=== PATIENT | male | born 1960 | race African-American/Black ===

== ENCOUNTER 2019-02-05 15:24 | Inpatient (IN) | payer OTHER ==
--- NOTE | 2019-02-05 16:21 | ED ---
General Adult HPI - General Source: patient, RN notes reviewed, old records reviewed Mode of arrival: ambulatory Limitations: no limitations <Ar Chiu - Last Filed: 02/05/19 16:17> <Jose Luis Reyes - Last Filed: 02/05/19 17:45> - General Chief complaint: Psychiatric Symptoms Stated complaint: Mental Health Time Seen by Provider: 02/05/19 15:41 - History of Present Illness Initial comments: 58-year-old male presents for psychiatric evaluation. Patient has been petitioned. He is coming from local long-term. He was initially arrested, attempting to cross into [place]. He was wearing an illegal body armor. Patient has had paranoid behavior, flight of ideas. He was petitioned and evaluated by [facility] prior to arrival. He does not report a previous history of mental illness. He states he was prescribed psychiatric medications in the past but has not taken them. He denies any physical complaints. He states he has no medical problems. He states he has been using his pineal gland to channel his inner spirituality. He does appear delusional and history is somewhat difficult. (Ar Chiu) - Related Data Allergies Allergy/AdvReac Type Severity Reaction Status Date / Time Sulfa (Sulfonamide AdvReac Rash/Hives Verified 02/05/19 16:51 Antibiotics) Review of Systems ROS Other: All systems not noted in ROS Statement are negative. <Ar Chiu - Last Filed: 02/05/19 16:17> ROS Other: All systems not noted in ROS Statement are negative. <Jose Luis Reyes - Last Filed: 02/05/19 17:45> ROS Statement: Those systems with pertinent positive or pertinent negative responses have been documented in the HPI. Past Medical History Past Medical History: No Reported History History of Any Multi-Drug Resistant Organisms: None Reported Past Surgical History: No Surgical Hx Reported Past Psychological History: No Psychological Hx Reported Smoking Status: Never smoker Past Alcohol Use History: None Reported Past Drug Use History: Marijuana <Ar Chiu - Last Filed: 02/05/19 16:17> General Exam Limitations: no limitations General appearance: alert, in no apparent distress Head exam: Present: atraumatic, normocephalic Eye exam: Present: normal appearance ENT exam: Present: mucous membranes moist Neck exam: Present: full ROM. Absent: meningismus Respiratory exam: Absent: respiratory distress, accessory muscle use GI/Abdominal exam: Absent: distended Extremities exam: Present: normal inspection, full ROM Neurological exam: Present: alert, normal gait. Absent: motor sensory deficit Psychiatric exam: Present: agitated, other (Delusional) Skin exam: Absent: cyanosis, diaphoretic <Ar Chiu - Last Filed: 02/05/19 16:17> - General Exam Comments Initial Comments: Patient refuses complete physical exam. He is in no acute distress. Vital signs are stable. (Ar Chiu) Course <Ar Chiu - Last Filed: 02/05/19 16:17> Vital Signs 02/05/19 15:28 Temperature 99.2 F Pulse Rate 105 H Respiratory 18 Rate Blood Pressure 142/99 O2 Sat by Pulse 98 Oximetry - Reevaluation(s) Reevaluation #1: 02/05/19 1700 Patient's care is signed out at shift change awaiting EPS evaluation and disp osition. (Ar Chiu) Medical Decision Making <Jose Luis Reyes - Last Filed: 02/05/19 17:45> - Medical Decision Making Medical decision making; this is a 58-year-old male here for psychiatric evaluation. Is brought to the emergency room from the bridge by the [employer] because he had illegal body armor on. He has flighty thoughts. Rambling history. States while in the long-term he found to ball slightly open them or bloody tampons. He stated that the police trying to frame him and collect semen from the samples. The patient reports is not currently taking any of his psychiatric medications. Patient denies any medical problems time. I have completed a certificate for admission for further evaluation with diagnosis of schizoaffective disorder. Dr. Reyes (Jose Luis Reyes) Disposition <Ar Chiu - Last Filed: 02/05/19 16:17> Is patient prescribed a controlled substance at d/c from ED?: No <Jose Luis Reyes - Last Filed: 02/05/19 17:45> Clinical Impression: Schizoaffective disorder Disposition: TRANSFER TO PSYCH HOSP/UNIT Condition: Serious Referrals: None,Stated [Primary Care Provider] - 1-2 days
[2019-02-05] MEDS ORDERED: ACETAMINOPHEN TAB 325 MG TAB PO PRN (17:56)
[2019-02-05] MEDS ORDERED: ZIPRASIDONE 20 MG VIAL IM PRN (17:56)
[2019-02-05] MEDS ORDERED: MAG HYDROX/AL HYDROX/SIMETH 30 ML CUP PO PRN (17:56)
[2019-02-05] MEDS ORDERED: MAGNESIUM HYDROXIDE 2,400 MG/10 ML CUP PO PRN (17:56)
[2019-02-05] MEDS ORDERED: LORazepam 1 MG TAB PO PRN (17:56)
[2019-02-05] MEDS ORDERED: LORazepam 2 MG/ML INJ IM PRN (18:04)
[2019-02-06] MEDS ORDERED: AMMONIUM LACTATE 12% CREAM 140 GM TUBE TOPICAL PRN (14:37)
--- NOTE | 2019-02-06 14:49 | P.HPMEDMHU ---
History of Present Illness H&P Date: 02/06/19 Chief Complaint: paranoia Patient is a 58-year-old -Citizen Of [place] male who was found by police for trying to cross that bridge to opiate legal wearing full green party [place]. His found have grandiose ideas apparently has subsequently been admitted to the mental health unit. Patient seen and examined in the hallways he refused to go to his rheumatoid examined him there. He denies any recent illnesses such as cough, cold, fever, flu, nausea, vomiting, or diarrhea. He complains of bilateral feet pain. He denies not wearing any shoes. He states it happened when he was bad but will not explain further. He reports that in injury on his face And when he was forced out of the police car. He believes he has a long way in the mental health unit and that he was trying to purchase property and explained there is lots of property there but he just wants his. He has a flight of ideas. He is paranoid thinking. He refuses to answer further questions. He states that he does not have a family doctor or any chronic medical conditions. Patient is focused on his Facebook page and real estate purchases. He does not stay focused on our exam. Review of Systems Unable to obtain complete review of systems secondary to patient's mental state and refusal to answer questions. Past Medical History Additional Past Medical History / Comment(s): left elbow fracture History of Any Multi-Drug Resistant Organisms: None Reported Past Surgical History: No Surgical Hx Reported Past Psychological History: No Psychological Hx Reported Smoking Status: Never smoker Past Alcohol Use History: None Reported Past Drug Use History: Marijuana - Past Family History Father Family Medical History: Unable to Obtain (refuses to answer any more questions) Mother Family Medical History: Unable to Obtain (refuses to answer any more questions) Medications and Allergies Home Medications Medication Instructions Recorded Confirmed Type No Known Home Medications 02/05/19 02/05/19 History Allergies Allergy/AdvReac Type Severity Reaction Status Date / Time Sulfa (Sulfonamide AdvReac Rash/Hives Verified 02/05/19 16:51 Antibiotics) Physical Exam Osteopathic Statement: *. No significant issues noted on an osteopathic structural exam other than those noted in the History and Physical/Consult. Vitals: Vital Signs Temp Pulse Pulse Resp BP BP Pulse Ox 02/05/19 18:28 99 F 112 H 20 133/94 02/05/19 17:55 103 H 20 142/80 100 02/05/19 15:28 99.2 F 105 H 18 142/99 98 Intake and Output 02/05/19 02/06/19 02/06/19 22:59 06:59 14:59 Other: Weight 83.915 kg General: non toxic, no distress, appears at stated age, normal weight, malodorous Derm: Multiple abrasions to bilateral pretibial areas, abrasion to right periorbital area, bilateral heels with thickened posterior skin without redness or warmth, no unusual ecchymoses, warm, dry Head: atraumatic, normocephalic, symmetric Eyes: EOMI, no lid lag, anicteric sclera ENT: Nose and ears atraumatic, no thrush, no pharyngeal erythema Neck: No thyromegaly, no cervical lymphadenopathy, trachea midline, supple Mouth: no lip lesion, mucus membranes moist Cardiovascular: S1S2 reg, no murmur, positive posterior tibial pulse bilateral, no edema, capillary refill less than 2 seconds Lungs: CTA bilateral, no rhonchi, no rales , no accessory muscle use Abdominal: soft, nontender to palpation, no guarding, no appreciable organomegaly, normal bowel sounds Ext: no gross muscle atrophy, and all 4 extremities independently, no contractures, Neuro: CN II-XI grossly intact, light touch intact all 4 extremities Psych: Alert, oriented, appears anxious and animated Cranial Nerve Examination - Cranial Nerves Cranial Nerve II- Optic: Intact Cranial Nerve III- Oculomotor: Intact Cranial Nerve IV- Trochlear: Intact Cranial Nerve V- Trigeminal: Intact Cranial Nerve - Abducens: Intact Cranial Nerve VII- Facial: Intact Cranial Nerve VIII- Auditory: Intact Cranial Nerve IX- Glossopharyngeal: Intact Cranial Nerve X- Vagus: Intact Cranial Nerve XI- Accessory: Intact Cranial Nerve XII- Hypoglossal: Intact Thrombosis Risk Factor Assmnt - DVT/VTE Prophylaxis DVT/VTE Prophylaxis: Low risk, early ambulation encouraged Assessment and Plan Assessment: Callous bilateral heels -Ammonia lactate twice daily Paranoia -Your psych management -Would suggest urine drug screen if patient willing Thank you for allowing us to participate in the care of this patient. We will follow peripherally. Do not hesitate to contact us with questions. Someone can be reached from the [facility] hospitalist group at all hours of the day at [phone].
--- NOTE | 2019-02-06 15:26 | P.HP ---
Psychiatric H&P - . H&P Date: 02/06/19 History & Physical: Allergies Allergy/AdvReac Type Severity Reaction Status Date / Time Sulfa (Sulfonamide AdvReac Rash/Hives Verified 02/05/19 16:51 Antibiotics) Vital Signs Temp 99 F 02/05/19 18:28 Pulse 112 H 02/05/19 18:28 Resp 20 02/05/19 18:28 BP 133/94 02/05/19 18:28 Pulse Ox 100 02/05/19 17:55 Intake & Output 02/05/19 02/06/19 02/06/19 18:59 06:59 18:59 Weight 83.915 kg Assessment and Plan Assessment: 58-year-old male presents for psychiatric evaluation. Patient has been petitioned. He is coming from local fdc. He was initially arrested, at tempting to cross into [place]. He was wearing an illegal body armor. Patient has had paranoid behavior, flight of ideas. He was petitioned and evaluated by [facility] mental health prior to arrival. He does not report a previous history of mental illness. He states he was prescribed psychiatric medications in the past but has not taken them. He denies any physical complaints. He states he has no medical problems. He states he has been using his pineal gland to channel his inner spirituality. He does appear delusional and history is somewhat difficult. Pt. was at the [facility] after being arrested yesterday [place] the [place] body armour. Pt. charged with felony. Pt. hyperverbal and grandiose. Pt. telling everyone he loves them and pt. rambling in speech. Pt. talked about buying a piece of property and then when he went there he was told he was trespassing. Pt. states he went to [employer] and they said that wasn't his property. Pt. went to attorney lawyer and they said that property and half a million dollar homes on it. Pt. states his friend who is on the deed with him told him he couldn't hang around anymore and he said everyone was acting weird. Pt. went to the bridge and states he went to the water and went to customs, When they said he had to leave he said I'm going to stay right here until I see the alicea. Pt. states at the fdc when they put him in the general public he knew they were setting him up and they were going to kill him. Pt. states he drinks a beer occasionally. Pt. states he has a medical marijuana card but doesn't use any other drugs. Pt. was at the [facility] after being arrested yesterday for being on the [place] wearing body amour. Pt. charged with felony. Pt. hyperverbal and grandiose. Pt. telling everyone he loves them and pt. rambling in speech. Pt. talked about buying a piece of property and then when he went there he was told he was trespassing. Pt. states he went to [employer] and they said that wasn't his property. Pt. went to attorney lawyer and they said that property and half a million dollar homes on it. Pt. states his friend who is on the deed with him told him he couldn't hang around anymore and he said everyone was acting weird. Pt. went to the bridge and states he went to the water and went to customs, When they said he had to leave he said I'm going to stay right here until I see the alicea. Pt. states at the fdc when they put him in the general public he knew they were setting him up and they were going to kill him. pt was cooperative upon approach pt stated that he bought land in [facility] and instead of getting the deed to one piece of property he recieved multiple deeds to multiple pieces of land. pt stated that he did not want this property a nd his friend, that works at [employer], told him "people I work with are upset and they want you in a box. pt stated that he went [place] because "I feared for my life and I now there is no law on water. so i went to neutral grounds" pt believes he is being charged with "possession of a bullet proof vest." pt reported that he does not feel safe on the unit and "i feel poisoned and I don feel I should be given medications if I don't want them." According to [facility] records he does have a history in the past of treatment [facility]. - Related Data Allergies Allergy/AdvReac Type Severity Reaction Status Date / Time Sulfa (Sulfonamide AdvReac Rash/Hives Verified 02/05/19 16:51 Antibiotics) Past Medical History Past Medical History: No Reported History History of Any Multi-Drug Resistant Organisms: None Reported Past Surgical History: No Surgical Hx Reported Past Psychological History: No Psychological Hx Reported Smoking Status: Never smoker Past Alcohol Use History: None Reported Past Drug Use History: Marijuana Musculoskeletal Examination - Abnormal/Involuntary Movements: [none] Strength: [greater than antigravity (greater than/equal to 3/5) in all extremities, weakness:] Muscle Tone: [no impairment Gait: [grossly normal Station: [grossly normal Mental Status Examination - this mental status examination at be conducted in the hallway because the patient was too paranoid to come to examiners room. He states that he wants to be around a camera so the FBI can see everything as going on. General Appearance: [ bizarre appears older than stated age Speech/Language: [ rapid, expressive, loud] Attitude/Behavior: [ guarded, irritable, withdrawn, indifferent Mood: [ euphoric, anxious, irritable, angry, fearful, ] Affect: [ incongruent, labile Orientation: [time, person, place situation] Thought Content: [ delusions, obsessions Risk Factors: [denies suicidal (ideations, plan), and/or Homicidal (ideations, plan), other] Perception: [ hallucinations (auditory Thought Processes: [ concrete, circumstantial, tangential] Concentration/Attention Span: [ impaired] [Per observation and interview with the patient] Recent Memory: [ impaired] [0 out of 3 in 3 minutes] Remote Memory: [impaired] [past events, as related history] Intelligence: [below average] [based on history, based on vocabulary, syntax, grammar, and content] Judgement: [ poor] [per patient's behavior/history of present illness] Insight: [ poor] [understanding severity of illness/history of present illness] Admitting Diagnosis: [paranoid schizophrenia acute psychosis] Patient Strengths - Steady employment/financial stability: [currently on Medicare disability] Patient Limitations: [medication, non-compliance, pathological/unsupported environment, intellectual impairment, complicated medical illness, legal issues Initial Plan of Care: [this is a 58-year-old -[place] male who is admitted on an involuntary admission to [address] [place] [address]. He will be placed on 15 minute checks for safety and usual protocol per unit. He'll be expected to take medicines and participate in [facility] therapeutic environment. However this may not happen until the patient goes to probate Court for mental health treatment since he is resistant to any kind of treatment at this time. A thorough biopsychosocial assessment will be evaluated during his hospitalization and consideration of collateral information such as from [facility] of past treatment. He is reported to have schizophrenia. When necessary medications had been written for such as Ativan and Geodon which she had to have on 02/05/2019. He is very paranoid and difficult to find out information thus is a very unreliable historian. He also has a fdc hold but since he is a resident of [place], and there is consideration of what jurisdiction does he fall under and where should aftercare be. This be further determined as we get confirmation from [facility] and from [facility].] Estimated Length of Stay: [14 days] Initial Discharge Plan: [fdc, [facility] Prognosis: [ guarded] Justification for Inpatient Hospitalization - [Hallucinations, delusions, agitation, anxiety, depression resulting in significant loss of functioning.] [Dangerous to self, others, or property with need for controlled environment.] [Emotional or behavioral conditions and complications requiring 24 hour medical and nursing care.] [Need for special drug therapy, or other therapeutic program requiring continuous hospitalization.] [Failure of social or occupational functioning.] [Inability to meet basic life and health needs.] [Legally mandated admission.] (1) Schizoaffective disorder Current Visit: Yes Status: Acute Priority: High Code(s): F25.9 - SCHIZOAFFECTIVE DISORDER, UNSPECIFIED SNOMED Code(s): 93942381 Time with Patient: Less than 30
[2019-02-06] MEDS ORDERED: AMMONIUM LACTATE 12% CREAM 140 GM TUBE TOPICAL SCH (21:00)
--- NOTE | 2019-02-07 11:47 | P.PN ---
Subjective Progress Note Date: 02/07/19 Principal diagnosis: Schizophrenia acute psychosis 02/07/2019: Chart reviewed discussed in team interview patient. He still has a tendency to ramble and think that people are out to harm him and he will not take any medications. Discussed within minutes he will go to probate [address] for involuntary psychiatric treatment. 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 Objective - Vital Signs Vital signs: Vital Signs Temp 99.2 F 02/07/19 02:21 Pulse 140 H 02/07/19 02:21 Resp 16 02/07/19 02:21 BP 151/105 02/07/19 02:21 Pulse Ox 100 02/05/19 17:55 Assessment and Plan Assessment: 58-year-old male presents for psychiatric evaluation. Patient has been petitioned. He is coming from local care home. He was initially arrested, attempting to cross into [place]. He was wearing an illegal body armor. Patient has had paranoid behavior, flight of ideas. He was petitioned and evaluated by [facility] prior to arrival. He does not report a previous history of mental illness. He states he was prescribed psychiatric medications in the past but has not taken them. He denies any physical complaints. He states he has no medical problems. He states he has been using his pineal gland to channel his inner spirituality. He does appear delusional and history is somewhat difficult. Pt. was at the [facility] after being [place] yesterday [place] body [place]. Pt. charged with felony. Pt. hyperverbal and grandiose. Pt. telling everyone he loves them and pt. rambling in speech. Pt. talked about buying a piece of property and then when he went there he was told he was trespassing. Pt. states he went to [employer] and they said that wasn't his property. Pt. went to [employer] and they said that property and half a million dollar homes on it. Pt. states his friend who is on the deed with him told him he couldn't hang around anymore and he said everyone was acting weird. Pt. went to the bridge and states he went to the water and went to customs, When they said he had to leave he said I'm going to stay right here until I see the alicea. Pt. states at the care home when they put him in the general public he knew they were setting him up and they were going to kill him. Pt. states he drinks a beer occasionally. Pt. states he has a medical marijuana card but doesn't use any other drugs. Pt. was at the [facility] after being arrested yesterday [place] being [place] the [place] wearing body amour. Pt. charged with felony. Pt. hyperverbal and grandiose. Pt. telling everyone he loves them and pt. rambling in speech. Pt. talked about buying a piece of property and then when he went there he was told he was trespassing. Pt. states he went to [employer] and they said that wasn't his property. Pt. went to [employer] and they said that property and half a million dollar homes on it. Pt. states his friend who is on the deed with him told him he couldn't hang around anymore and he said everyone was acting weird. Pt. went to the bridge and states he went to the water and went to customs, When they said he had to leave he said I'm going to stay right here until I see the alicea. Pt. states at the care home when they put him in the general public he knew they were setting him up and they were going to kill him. pt was cooperative upon approach pt stated that he bought land in [facility] and instead of getting the deed to one piece of property he recieved multiple deeds to multiple pieces of land. pt stated that he did not want this property and his friend, that works at [employer], told him "people I work with are upset and they want you in a box. pt stated that [place] because "I feared for my life and I now there is no law on water. [place] i [place]" pt believes he is being charged with "possession of a bullet proof vest." pt reported that he does not feel safe on the unit and "i feel poisoned and I don feel I should be given medications if I don't want them." According to [facility] mental health records he does have a history in the past of treatment [facility]. - Mental Status Examination - this mental status examination at be conducted in the hallway because the patient was too paranoid to come to examiners room. He states that he wants to be around a camera so the FBI can see everything as going on. General Appearance: [ bizarre appears older than stated age Speech/Language: [ rapid, expressive, loud] Attitude/Behavior: [ guarded, irritable, withdrawn, indifferent Mood: [ euphoric, anxious, irritable, angry, fearful, ] Affect: [ incongruent, labile Orientation: [time, person, place situation] Thought Content: [ delusions, obsessions Risk Factors: [denies suicidal (ideations, plan), and/or Homicidal (ideations, plan), other] Perception: [ hallucinations (auditory Thought Processes: [ concrete, circumstantial, tangential] Concentration/Attention Span: [ impaired] [Per observation and interview with the patient] Recent Memory: [ impaired] [0 out of 3 in 3 minutes] Remote Memory: [impaired] [past events, as related history] Intelligence: [below average] [based on history, based on vocabulary, syntax, grammar, and content] Judgement: [ poor] [per patient's behavior/history of present illness] Insight: [ poor] [understanding severity of illness/history of present illness] Admitting Diagnosis: [paranoid schizophrenia acute psychosis] Patient Strengths - Steady employment/financial stability: [currently on Medicare disability] Patient Limitations: [medication, non-compliance, pathological/unsupported environment, intellectual impairment, complicated medical illness, legal issues Initial Plan of Care: [this is a 58-year-old -[place] male who is admitted on an involuntary admission to [facility] mental health unit [facility]. He will be placed on 15 minute checks for safety and usual protocol per unit. He'll be expected to take medicines and participate in angelo milieu therapeutic environment. However this may not happen until the patient goes to probate Court for mental health treatment since he is resistant to any kind of treatment at this time. A thorough biopsychosocial assessment will be evaluated during his hospitalization and consideration of collateral information such as from community mental health of past treatment. He is reported to have schizophrenia. When necessary medications had been written for such as Ativan and Geodon which she had to have on 02/05/2019. He is very paranoid and difficult to find out information thus is a very unreliable historian. He also has a care home hold but since he is a resident of [place], and there is consideration of what jurisdiction does he fall under and where should aftercare be. This be further determined as we get confirmation from [facility] and from [facility].] Initial Discharge Plan: [[facility] (1) Schizoaffective disorder Current Visit: Yes Status: Acute Priority: High Code(s): F25.9 - SCHIZOAFFECTIVE DISORDER, UNSPECIFIED SNOMED Code(s): 92817102 Time with Patient: Less than 30
--- NOTE | 2019-02-08 16:30 | P.PN ---
Progress Note - Text Progress Note Date: 02/08/19 Interval history: Patient seen in cross coverage today. He relates that he is not taking any medication. He reports that his mood is doing well today. He reports that he had been looking at doing a fast but he is eating. Reports that he is getting along well with others. Mental status exam: He is alert and cooperative with the interview. He does not show any agitation. He describes his mood is doing well. He denies any thoughts of harm to self or others. He denies any auditory or visual hallucinations. He makes reference that he loves me and he loves everybody. Plan: Patient will be monitored regarding his status. We'll continue to cover this patient through the weekend.
--- NOTE | 2019-02-09 17:50 | P.PN ---
Progress Note - Text Progress Note Date: 02/09/19 Interval history: Patient seen in cross [facility] today. He says that he is attending groups. He reports that his mood is doing well. Mental status exam: He is alert and cooperative with the interview. He is not showing any agitation. He describes that his mood is doing well. He denies any thoughts of harm to self or others. He makes reference to peace. He does not verbalize any auditory or visual hallucinations. He does not show any agitation. Plan: We'll continue to monitor patient's status. Dr. Talbot to resume care this patient starting tomorrow.
--- NOTE | 2019-02-10 14:49 | P.PN ---
Subjective Progress Note Date: 02/10/19 Principal diagnosis: Schizophrenia acute psychosis 02/07/2019: Chart reviewed discussed in team interview patient. He still has a tendency to ramble and think that people are out to harm him and he will not take any medications. Discussed within minutes he will go to probate Court for involuntary psychiatric treatment. 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 02/10/2019: Chart reviewed discussed in team. Patient interviewed. Patient is more alert and awake but still has some paranoid ideation. He denies any suicidal homicidal ideation at the present time. Objective - Vital Signs Vital signs: Vital Signs Temp 98.6 F 02/10/19 06:05 Pulse 82 02/10/19 06:05 Resp 16 02/10/19 06:05 BP 127/77 02/10/19 06:05 Pulse Ox 100 02/05/19 17:55 Intake & Output 02/09/19 02/10/19 02/10/19 18:59 06:59 18:59 Weight 76.5 kg Assessment and Plan Assessment: 58-year-old male presents for psychiatric evaluation. Patient has been petitioned. He is coming from local skilled nursing. He was initially arrested, attempting to cross into [place]. He was wearing an illegal body armor. Patient has had paranoid behavior, flight of ideas. He was petitioned and evaluated by community mental health prior to arrival. He does not report a previous history of mental illness. He states he was prescribed psychiatric medications in the past but has not taken them. He denies any physical complaints. He states he has no medical problems. He states he has been using his pineal gland to channel his inner spirituality. He does appear delusional and history is s omewhat difficult. Pt. was at the [facility] after being arrested yesterday [place] being [place] body [place]. Pt. charged with felony. Pt. hyperverbal and grandiose. Pt. telling everyone he loves them and pt. rambling in speech. Pt. talked about buying a piece of property and then when he went there he was told he was trespassing. Pt. states he went to [employer] and they said that wasn't his property. Pt. went to [employer] and they said that property and half a million dollar homes on it. Pt. states his friend who is on the deed with him told him he couldn't hang around anymore and he said everyone was acting weird. Pt. went to the bridge and states he went to the water and went to customs, When they said he had to leave he said I'm going to stay right here until I see the alicea. Pt. states at the skilled nursing when they put him in the general public he knew they were setting him up and they were going to kill him. Pt. states he drinks a beer occasionally. Pt. states he has a medical marijuana card but doesn't use any other drugs. Pt. was at the [facility] after being arrested yesterday [place] being [place] body amour. Pt. charged with felony. Pt. hyperverbal and grandiose. Pt. telling everyone he loves them and pt. rambling in speech. Pt. talked about buying a piece of property and then when he went there he was told he was trespassing. Pt. states he went to [employer] and they said that wasn't his property. Pt. went to [employer] and they said that property and half a million dollar homes on it. Pt. states his friend who is on the deed with him told him he couldn't hang around anymore and he said everyone was acting weird. Pt. went to the bridge and states he went to the water and went to customs, When they said he had to leave he said I'm going to stay right here until I see the alicea. Pt. states at the skilled nursing when they put him in the general public he knew they were setting him up and they were going to kill him. pt was cooperative upon approach pt stated that he bought land in [facility] and instead of getting the deed to one piece of property he recieved multiple deeds to multiple pieces of land. pt stated that he did not want this property and his friend, that works at [employer], told him "people I work with are upset and they want you in a box. pt stated that he [place] because "I feared for my life and I now there is no law [place]. [place]" pt believes he is being charged with "possession of a bullet proof vest." pt reported that he does not feel safe on the unit and "i feel poisoned and I don feel I should be given medications if I don't want them." According to [facility] records he does have a history in the past of treatment [facility]. - Mental Status Examination - this mental status examination at be conducted in the hallway because the patient was too paranoid to come to examiners room. He states that he wants to be around a camera so the FBI can see everything as going on. General Appearance: [ bizarre appears older than stated age Speech/Language: [ rapid, expressive, loud] Attitude/Behavior: [ guarded, irritable, withdrawn, indifferent Mood: [ euphoric, anxious, irritable, angry, fearful, ] Affect: [ incongruent, labile Orientation: [time, person, place situation] Thought Content: [ delusions, obsessions Risk Factors: [denies suicidal (ideations, plan), and/or Homicidal (ideations, plan), other] Perception: [ hallucinations (auditory Thought Processes: [ concrete, circumstantial, tangential] Concentration/Attention Span: [ impaired] [Per observation and interview with the patient] Recent Memory: [ impaired] [0 out of 3 in 3 minutes] Remote Memory: [impaired] [past events, as related history] Intelligence: [below average] [based on history, based on vocabulary, syntax, grammar, and content] Judgement: [ poor] [per patient's behavior/history of present illness] Insight: [ poor] [understanding severity of illness/history of present illness] Admitting Diagnosis: [paranoid schizophrenia acute psychosis] Patient Strengths - Steady employment/financial stability: [currently on Medicare disability] Patient Limitations: [medication, non-compliance, pathological/unsupported environment, intellectual impairment, complicated medical illness, legal issues Initial Plan of Care: [this is a 58-year-old -[place]i male who is admitted on an involuntary admission to [facility] mental health unit [facility]. He will be placed on 15 minute checks for safety and usual protocol per unit. He'll be expected to take medicines and participate in angelo milieu therapeutic environment. However this may not happen until the patient goes to probate Court for mental health treatment since he is resistant to any kind of treatment at this time. A thorough biopsychosocial assessment will be evaluated during his hospitalization and consideration of collateral information such as from [facility] of past treatment. He is reported to have schizophrenia. When necessary medications had been written for such as Ativan and Geodon which she had to have on 02/05/2019. He is very paranoid and difficult to find out information thus is a very unreliable historian. He also has a skilled nursing hold but since he is a resident of [place], and there is consideration of what jurisdiction does he fall under and where should aftercare be. This be further determined as we get confirmation from [facility] and from [facility]. 02/10/2019: Awaiting court continue monitoring 15 minute checks for safety and usual protocol for per unit. He still is refusing medications.] Initial Discharge Plan: [[facility] (1) Schizoaffective disorder Current Visit: Yes Status: Acute Priority: High Code(s): F25.9 - SCHIZOAFFECTIVE DISORDER, UNSPECIFIED SNOMED Code(s): 03621259 Time with Patient: Less than 30
[2019-02-11 06:52] VITALS: RESP 18
[2019-02-11 10:50] VITALS: BMI 23.0
--- NOTE | 2019-02-11 15:14 | P.PN ---
Subjective Progress Note Date: 02/11/19 Principal diagnosis: Schizophrenia acute psychosis 02/07/2019: Chart reviewed discussed in team interview patient. He still has a tendency to ramble and think that people are out to harm him and he will not take any medications. Discussed within minutes he will go to probate Court for involuntary psychiatric treatment. He is his my on [employer]CH[employer]. 02/10/2019: Chart reviewed discussed in team. Patient interviewed. Patient is more alert and awake but still has some paranoid ideation. He denies any suicidal homicidal ideation at the present time. 02/11/2019: Chart discussed in team and discussed with nursing staff. Staff attempted to reach [facility] for deferral and court date. Jerry from [facility] has been able to answer questions regarding this client.discussed with patient today that he is going to probate court then received treatment and then will return to intermediate at which point he became irrational and thought he was going back to [facility] Intermediate on is a no happened in [facility] endorses a change of venue he will go back to intermediate.. Objective - Vital Signs Vital signs: Vital Signs Temp 97.7 F 02/11/19 10:36 Pulse 64 02/11/19 10:36 Resp 18 02/11/19 10:36 BP 123/77 02/11/19 10:36 Pulse Ox 99 02/11/19 10:36 Assessment and Plan Assessment: 58-year-old male presents for psychiatric evaluation. Patient has been petitioned. He is coming from local intermediate. He was initially arrested, attempting to cross into [place]. He was wearing an illegal body armor. Patient has had paranoid behavior, flight of ideas. He was petitioned and evaluated by [facility] prior to arrival. He does not report a previous history of mental illness. He states he was prescribed psychiatric medications in the past but has not taken them. He denies any physical complaints. He states he has no medical problems. He states he has been using his pineal gland to channel his inner spirituality. He does appear delusional and history is somewhat difficult. Pt. was at the [facility] Intermediate after being [place] body [place]. Pt. charged with felony. Pt. hyperverbal and grandiose. Pt. telling everyone he loves them and pt. rambling in speech. Pt. talked about buying a piece of property and then when he went there he was told he was trespassing. Pt. states he went to [employer] and they said that wasn't his property. Pt. went to [employer] and they said that property and half a million dollar homes on it. Pt. states his friend who is on the deed with him told him he couldn't hang around anymore and he said everyone was acting weird. Pt. went to the bridge and states he went to the water and went to customs, When they said he had to leave he said I'm going to stay right here until I see the alicea. Pt. states at the intermediate when they put him in the general public he knew they were setting him up and they were going to kill him. Pt. states he drinks a beer occasionally. Pt. states he has a medical marijuana card but doesn't use any other drugs. Pt. was at the [facility] Intermediate after being arrested yesterday for being on the [email or web address] bridge wearing body amour. Pt. charged with felony. Pt. hyperverbal and grandiose. Pt. telling everyone he loves them and pt. rambling in speech. Pt. talked about buying a piece of property and then when he went there he was told he was trespassing. Pt. states he went to [employer] and they said that wasn't his property. Pt. went to [employer] and they said that property and half a million dollar homes on it. Pt. states his friend who is on the deed with him told him he couldn't hang around anymore and he said everyone was acting weird. Pt. went to the bridge and states he went to the water and went to [place], When they said he had to leave he said I'm going to stay right here until I see the alicea. Pt. states at the intermediate when they put him in the general public he knew they were setting him up and they were going to kill him. pt was cooperative upon approach pt stated that he bought land in [facility] and instead of getting the deed to one piece of property he recieved multiple d eeds to multiple pieces of land. pt stated that he did not want this property and his friend, that works at [employer], told him "people I work with are upset and they want you in a box. pt [place] "I feared for my life and I now there is no law on water. so i [place]" pt believes he is being charged with "possession of a bullet proof vest." pt reported that he does not feel safe on the unit and "i feel poisoned and I don feel I should be given medications if I don't want them." According to [facility] records he does have a history in the past of treatment [facility]. - Mental Status Examination - this mental status examination at be conducted in the hallway because the patient was too paranoid to come to examiners room. He states that he wants to be around a camera so the FBI can see everything as going on. General Appearance: [ bizarre appears older than stated age Speech/Language: [ rapid, expressive, loud] Attitude/Behavior: [ guarded, irritable, withdrawn, indifferent Mood: [ euphoric, anxious, irritable, angry, fearful, ] Affect: [ incongruent, labile Orientation: [time, person, place situation] Thought Content: [ delusions, obsessions Risk Factors: [denies suicidal (ideations, plan), and/or Homicidal (ideations, plan), other] Perception: [ hallucinations (auditory Thought Processes: [ concrete, circumstantial, tangential] Concentration/Attention Span: [ impaired] [Per observation and interview with the patient] Recent Memory: [ impaired] [0 out of 3 in 3 minutes] Remote Memory: [impaired] [past events, as related history] Intelligence: [below average] [based on history, based on vocabulary, syntax, grammar, and content] Judgement: [ poor] [per patient's behavior/history of present illness] Insight: [ poor] [understanding severity of illness/history of present illness] Admitting Diagnosis: [paranoid schizophrenia acute psychosis] Patient Strengths - Steady employment/financial stability: [currently on Medicare disability] Patient Limitations: [medication, non-compliance, pathological/unsupported environment, intellectual impairment, complicated medical illness, legal issues Initial Plan of Care: [this is a 58-year-old -Tong[place] male who is admitted on an involuntary admission to [facility] mental health unit Michelle Collins. He will be placed on 15 minute checks for safety and usual protocol per unit. He'll be expected to take medicines and participate in angelo milieu therapeutic environment. However this may not happen until the patient goes to probate Court for mental health treatment since he is resistant to any kind of treatment at this time. A thorough biopsychosocial assessment will be evaluated during his hospitalization and consideration of collateral information such as from [facility] of past treatment. He is reported to have schizophrenia. When necessary medications had been written for such as Ativan and Geodon which she had to have on 02/05/2019. He is very paranoid and dif ficult to find out information thus is a very unreliable historian. He also has a intermediate hold but since he is a resident of [place], and there is consideration of what jurisdiction does he fall under and where should aftercare be. This be further determined as we get confirmation from [facility] and from [facility]. 02/10/2019: Awaiting court continue monitoring 15 minute checks for safety and usual protocol for per unit. He still is refusing medications. 02/11/2019: Patient still continues to refuse medications and it appears that he is more malingering and he hasn't engaged in treatment. Awaiting Court, [facility] regarding's deferral and treatment. He remains on 15 minute checks and still refusing all medications because "I was not crazy Dr. I was just afraid" he stated he had a reasonably afraid and that he was trying to get to [place] again to avoid people in [place] and find land in [place]. Although he is rational [place]us[place] border [place] armored [place].] Initial Discharge Plan: [[facility] (1) Schizoaffective disorder Current Visit: Yes Status: Acute Priority: High Code(s): F25.9 - SCHIZOAFFECTIVE DISORDER, UNSPECIFIED SNOMED Code(s): 02133326 Time with Patient: Less than 30
[2019-02-12 07:32] LABS: Basophils % (A) 0 %; Eosinophils # (A) 0.1 k/uL (0-0.7); Eosinophils % (A) 1 %; HCT 45.6 % (39.0-53.0); Lymphocytes # (A) 2.5 k/uL (1.0-4.8); Lymphocytes % (A) 28 %; MCH 29.4 pg (25.0-35.0); MCHC 32.9 g/dL (31.0-37.0); MCV 89.3 fL (80.0-100.0); Mean Platelet Volume 6.7; Monocytes # (A) 0.5 k/uL (0-1.0); Monocytes % (A) 5 %; Neutrophils # (A) 5.8 k/uL (1.3-7.7); Neutrophils % (A) 64 %; Platelet Count 280 k/uL (150-450); RDW 12.9 % (11.5-15.5)
[2019-02-12 07:50] LABS: ALT 76 U/L (21-72); AST 39 U/L (17-59); Albumin 4.4 g/dL (3.5-5.0); Alkaline Phosphatase 80 U/L (38-126); Anion Gap 5 mmol/L; Blood Urea Nitrogen 7 mg/dL (9-20); Calcium 9.8 mg/dL (8.4-10.2); Carbon Dioxide 27 mmol/L (22-30); Chloride 108 mmol/L (98-107); Glucose 109 mg/dL (74-99); Potassium 4.2 mmol/L (3.5-5.1); Sodium 140 mmol/L (137-145); Total Bilirubin 1.3 mg/dL (0.2-1.3); Total Protein 7.1 g/dL (6.3-8.2)
--- NOTE | 2019-02-12 12:09 | P.PN ---
Subjective Progress Note Date: 02/12/19 Principal diagnosis: Schizophrenia acute psychosis 02/07/2019: Chart reviewed discussed in team interview patient. He still has a tendency to ramble and think that people are out to harm him and he will not take any medications. Discussed within minutes he will go to probate Court for involuntary psychiatric treatment. 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 02/10/2019: Chart reviewed discussed in team. Patient interviewed. Patient is more alert and awake but still has some paranoid ideation. He denies any suicidal homicidal ideation at the present time. 02/11/2019: Chart discussed in team and discussed with nursing staff. Staff attempted to reach [facility] for deferral and court date. Jerry from [facility] has been able to answer questions regarding this client.discussed with patient today that he is going to probate court then received treatment and then will return to senior care at which point he became irrational and thought he was going back to [facility] Detention on is a no happened in [facility] endorses a change of venue he will go back to senior care. 02/12/2019: Chart reviewed, discuss patient in team meeting today and with nursing staff. He has a deferral today but states he does not want take any medications. He still remains delusional but isolated. He still does not have the concept of he did anything wrong by going [place] the border and arm are best ad dressed to see the [facility]. He strongly denies any use of drugs and alcohol but he cleverly refused to do any drug screens are lab work since she's been here. Objective - Vital Signs Vital signs: Vital Signs Temp 98.5 F 02/12/19 01:58 Pulse 92 02/12/19 01:58 Resp 18 02/11/19 10:36 BP 148/91 02/12/19 01:58 Pulse Ox 99 02/11/19 10:36 - Labs CBC & Chem 7: 02/12/19 07:22 02/12/19 07:22 Labs: Abnormal Lab Results - Last 24 Hours (Table) 02/12/19 Range/Units 07:22 Chloride 108 H (98-107) mmol/L BUN 7 L (9-20) mg/dL Glucose 109 H (74-99) mg/dL ALT 76 H (21-72) U/L Assessment and Plan Assessment: 58-year-old male presents for psychiatric evaluation. Patient has been petitioned. He is coming from local senior care. He was initially arrested, attempting to cross into [place]. He was wearing an illegal body armor. Patient has had paranoid behavior, flight of ideas. He was petitioned and evaluated by [facility] prior to arrival. He does not report a previous history of mental illness. He states he was prescribed psychiatric medications in the past but has not taken them. He denies any physical complaints. He states he has no medical problems. He states he has been using his pineal gland to channel his inner spirituality. He does appear delusional and history is somewhat difficult. Pt. was at the [facility] Detention after being arrested yesterday [place] being [place] the [place] body [place]. Pt. charged with felony. Pt. hyperverbal and grandiose. Pt. telling everyone he loves them and pt. rambling in speech. Pt. talked about buying a piece of property and then when he went there he was told he was trespassing. Pt. states he went to [employer] and they said that wasn't his property. Pt. went to [employer] and they said that property and half a million dollar homes on it. Pt. states his friend who is on the deed with him told him he couldn't hang around anymore and he said everyone was acting weird. Pt. went to the bridge and states he went to the water and went to customs, When they sa id he had to leave he said I'm going to stay right here until I see the alicea. Pt. states at the senior care when they put him in the general public he knew they were setting him up and they were going to kill him. Pt. states he drinks a beer occasionally. Pt. states he has a medical marijuana card but doesn't use any other drugs. Pt. was at the [facility] Detention after being arrested yesterday [place] body amour. Pt. charged with felony. Pt. hyperverbal and grandiose. Pt. telling everyone he loves them and pt. rambling in speech. Pt. talked about buying a piece of property and then when he went there he was told he was trespassing. Pt. states he went to [employer] and they said that wasn't his property. Pt. went to [employer] and they said that property and half a million dollar homes on it. Pt. states his friend who is on the deed with him told him he couldn't hang around anymore and he said everyone was acting weird. Pt. went to the bridge and states he went to the water and went to customs, When they said he had to leave he said I'm going to stay right here until I see the [place]ice[place]. Pt. states at the senior care when they put him in the general public he knew they were setting him up and they were going to kill him. pt was cooperative upon approach pt stated that he bought land in [facility] and instead of getting the deed to one piece of property he recieved multiple deeds to multiple pieces of land. pt stated that he did not want this property and his friend, that works at [employer], told him "people I work with are upset and they want you in a box. pt [place] "I feared for my life and I now there is no law on water. so [place]" pt believes he is being charged with "possession of a bullet proof vest." pt reported that he does not feel safe on the unit and "i feel poisoned and I don feel I should be given medications if I don't want them." According to [facility] records he does have a history in the past of treatment [facility]. - Mental Status Examination - this mental status examination at be conducted in the hallway because the patient was too paranoid to come to examiners room. He states that he wants to be around a camera so the FBI can see everything as going on. General Appearance: [ bizarre appears older than stated age Speech/Language: [ rapid, expressive, loud] Attitude/Behavior: [ guarded, irritable, withdrawn, indifferent Mood: [ euphoric, anxious, irritable, angry, fearful, ] Affect: [ incongruent, labile Orientation: [time, person, place situation] Thought Content: [ delusions, obsessions Risk Factors: [denies suicidal (ideations, plan), and/or Homicidal (ideations, plan), other] Perception: [ hallucinations (auditory Thought Processes: [ concrete, circumstantial, tangential] Concentration/Attention Span: [ impaired] [Per observation and interview with the patient] Recent Memory: [ impaired] [0 out of 3 in 3 minutes] Remote Memory: [impaired] [past events, as related history] Intelligence: [below average] [based on history, based on vocabulary, syntax, grammar, and content] Judgement: [ poor] [per patient's behavior/history of present illness] Insight: [ poor] [understanding severity of illness/history of present illness] Admitting Diagnosis: [paranoid schizophrenia acute psychosis] Patient Strengths - Steady employment/financial stability: [currently on Medicare disability] Patient Limitations: [medication, non-compliance, pathological/unsupported environment, intellectual impairment, complicated medical illness, legal issues Initial Plan of Care: [this is a 58-year-old -[place] male who is admitted on an involuntary admission to [address] [place] [address] unit [facility]. He will be placed on 15 minute checks for safety and usual protocol per unit. He'll be expected to take medicines and participate in angelo milieu therapeutic environment. However this may not happen until the patient goes to probate Court for mental health treatment since he is resistant to any kind of treatment at this time. A thorough biopsychosocial assessment will be evaluated during his hospitalization and consideration of collateral information such as from [facility] of past treatment. He is reported to have schizophrenia. When necessary medications had been written for such as Ativan and Geodon which she had to have on 02/05/2019. He is very paranoid and difficult to find out information thus is a very unreliable historian. He also has a senior care hold but since he is a resident of [place], and there is consideration of what jurisdiction does he fall under and where should aftercare be. This be further determined as we get confirmation from [facility] and from [facility]. 02/10/2019: Awaiting court continue monitoring 15 minute checks for safety and usual protocol for per unit. He still is refusing medications. 02/11/2019: Patient still continues to refuse medications and it appears that he is more malingering and he hasn't engaged in treatment. Awaiting Court, [facility] regarding's deferral and treatment. He remains on 15 minute checks and still refusing all medications because "I was not crazy . I was just afraid" he stated he had a reasonably afraid and that he was trying to get to [place] again to avoid people in [place] and find land in [place]. Although he is rational and [place] border [place]ored [place]. 02/12/2019: Patient still continues to refuse medications. He will have a deferral hearing with an divorce attorney representing [facility] today. If he denies signing a deferral and denies taking medications he will go to the [place] [facility], Sunday at 8:30 in the morning. 15 minute checks needs to be continued and usual protocol for the unit.] Initial Discharge Plan: [dee damon (1) Schizoaffective disorder Current Visit: Yes Status: Acute Priority: High Code(s): F25.9 - SCHIZOAFFECTIVE DISORDER, UNSPECIFIED SNOMED Code(s): 59237606 Time with Patient: Less than 30
[2019-02-12] MEDS: PALIPERIDONE 3 MG TAB.ER.24 PO SCH (13:38)
[2019-02-13 06:59] VITALS: BP 139/88; PULSE 69; TEMP 98.9
[2019-02-13] MEDS: PALIPERIDONE 3 MG TAB.ER.24 PO SCH (08:33)
--- NOTE | 2019-02-13 11:48 | P.DS ---
Providers Date of admission: 02/05/19 17:49 Expected date of discharge: 02/13/19 Attending physician: Emir Talbot DO Consults: 02/05/19 17:56 Consult Physician Routine Consulting Provider: Dona Forrest Consult Reason/Comments: H & P and medical care Do you want consulting provider notified?: Yes Primary care physician: Stated None - Discharge Diagnosis(es) (1) Schizoaffective disorder Allergies Allergy/AdvReac Type Severity Reaction Status Date / Time Sulfa (Sulfonamide AdvReac Rash/Hives Verified 02/05/19 16:51 Antibiotics) Vital Signs Temp 99 F 02/05/19 18:28 Pulse 112 H 02/05/19 18:28 Resp 20 02/05/19 18:28 BP 133/94 02/05/19 18:28 Pulse Ox 100 02/05/19 17:55 Intake & Output 02/05/19 02/06/19 02/06/19 18:59 06:59 18:59 Weight 83.915 kg Assessment and Plan Assessment: 58-year-old male presents for psychiatric evaluation. Patient has been petitioned. He is coming from local custodial. He was initially arrested, attempting to cross into [place]. He was wearing an illegal body armor. Patient has had paranoid behavior, flight of ideas. He was petitioned and evaluated by [facility] prior to arrival. He does not report a previous history of mental illness. He states he was prescribed psychiatric medications in the past but has not taken them. He denies any physical complaints. He states he has no medical problems. He states he has been using his pineal gland to channel his inner spirituality. He does appear delusional and history is somewhat difficult. Pt. was at the [facility] after being arrested yesterday [place] being [place] the [place] body armour. Pt. charged with felony. Pt. hyperverbal and grandiose. Pt. telling everyone he loves them and pt. rambling in speech. Pt. talked about buying a piece of property and then when he went there he was told he was trespassing. Pt. states he went to [employer] and they said that wasn't his property. Pt. went to rn angiography and they said that property and half a million dollar homes on it. Pt. states his friend who is on the deed with him told him he couldn't hang around anymore and he said everyone was acting weird. Pt. went to the bridge and states he went to the water and went to customs, When they said he had to leave he said I'm going to stay right here until I see the alicea. Pt. states at the custodial when they put him in the general public he knew they were setting him up and they were going to kill him. Pt. states he drinks a beer occasionally. Pt. states he has a medical marijuana card but doesn't use any other drugs. Pt. was at the [facility] after being arrested yesterday for being on the [place] bridge wearing body amour. Pt. charged with felony. Pt. hyperverbal and grandiose. Pt. telling everyone he loves them and pt. rambling in speech. Pt. talked about buying a piece of property and then when he went there he was told he was trespassing. Pt. states he went to [employer] and they said that wasn't his property. Pt. went to [employer] and they said that property and half a million dollar homes on it. Pt. states his friend who is on the deed with him told him he couldn't hang around anymore and he said everyone was acting weird. Pt. went to the bridge and states he went to the water and went to customs, When they said he had to leave he said I'm going to stay right here until I see the alicea. Pt. states at the custodial when they put him in the general public he knew they were setting him up and they were going to kill him. pt was cooperative upon approach pt stated that he bought land in [facility] and instead of getting the deed to one piece of property he recieved multiple deeds to multiple pieces of land. pt stated that he did not want this property and his friend, that works at [employer], told him "people I work with are upset and they want you in a box. pt stated that he went to the [employer] bridge because "I feared for my life and I now there is no law on water. so i went to neutral grounds" pt believes he is being charged with "possession of a bullet proof vest." pt reported that he does not feel safe on the unit and "i feel poisoned and I don feel I should be given medications if I don't want them." According to [facility] records he does have a history in the past of treatment [facility]. - Related Data Allergies Allergy/AdvReac Type Severity Reaction Status Date / Time Sulfa (Sulfonamide AdvReac Rash/Hives Verified 02/05/19 16:51 Antibiotics) Past Medical History Past Medical History: No Reported History History of Any Multi-Drug Resistant Organisms: None Reported Past Surgical History: No Surgical Hx Reported Past Psychological History: No Psychological Hx Reported Smoking Status: Never smoker Past Alcohol Use History: None Reported Past Drug Use History: Marijuana Musculoskeletal Examination - Abnormal/Involuntary Movements: [none] Strength: [greater than antigravity (greater than/equal to 3/5) in all extremities, weakness:] Muscle Tone: [no impairment Gait: [grossly normal Station: [grossly normal Mental Status Examination - this mental status examination at be conducted in the hallway because the patient was too paranoid to come to examiners room. He states that he wants to be around a camera so the FBI can see everything as aydin g on. General Appearance: [ bizarre appears older than stated age Speech/Language: [ rapid, expressive, loud] Attitude/Behavior: [ guarded, irritable, withdrawn, indifferent Mood: [ euphoric, anxious, irritable, angry, fearful, ] Affect: [ incongruent, labile Orientation: [time, person, place situation] Thought Content: [ delusions, obsessions Risk Factors: [denies suicidal (ideations, plan), and/or Homicidal (ideations, plan), other] Perception: [ hallucinations (auditory Thought Processes: [ concrete, circumstantial, tangential] Concentration/Attention Span: [ impaired] [Per observation and interview with the patient] Recent Memory: [ impaired] [0 out of 3 in 3 minutes] Remote Memory: [impaired] [past events, as related history] Intelligence: [below average] [based on history, based on vocabulary, syntax, grammar, and content] Judgement: [ poor] [per patient's behavior/history of present illness] Insight: [ poor] [understanding severity of illness/history of present illness] Admitting Diagnosis: [paranoid schizophrenia acute psychosis] Patient Strengths - Steady employment/financial stability: [currently on Medicare disability] Patient Limitations: [medication, non-compliance, pathological/unsupported environment, intellectual impairment, complicated medical illness, legal issues Initial Plan of Care: [this is a 58-year-old -[place] male who is admitted on an involuntary admission to [address] [place] [address]. He will be placed on 15 minute checks for safety and usual protocol per unit. He'll be expected to take medicines and participate in [facility] therapeutic environment. However this may not happen until the patient goes to probate Court for mental health treatment since he is resistant to any kind of treatment at this time. A thorough biopsychosocial assessment will be evaluated during his hospitalization and consideration of collateral information such as from [facility] of past treatment. He is reported to have schizophrenia. When necessary medications had been written for such as Ativan and Geodon which she had to have on 02/05/2019. He is very paranoid and difficult to find out information thus is a very unreliable historian. He also has a custodial hold but since he is a resident of [place], and there is consideration of what jurisdiction does he fall under and where should aftercare be. This be further determined as we get confirmation from [facility] and from [facility].] Estimated Length of Stay: [14 days] Initial Discharge Plan: [[facility] Current Visit: Yes Status: Acute Priority: Low Hospital Course: Plan of Care: [this is a 58-year-old -[place] male who is admitted on an involuntary admission to [address] [place] [address] unit [facility]. He will be placed on 15 minute checks for safety and usual protocol per unit. He'll be expected to take medicines and participate in angel[facility] milieu therapeutic environment. However this may not happen until the patient goes to prob[place] [facility] for mental health treatment since he is resistant to any kind of treatment at this time. A thorough biopsychosocial assessment will be evaluated during his hospitalization and consideration of collateral information such as from [facility] of past treatment. He is reported to have schizophrenia. When necessary medications had been written for such as Ativan and Geodon which she had to have on 02/05/2019. He is very paranoid and difficult to find out information thus is a very unreliable historian. He also has a custodial hold but since he is a resident of [place], and there is consideration of what jurisdiction does he fall under and where should aftercare be. This be further determined as we get confirmation from [facility] and from [facility]. 02/10/2019: Awaiting court continue monitoring 15 minute checks for safety and usual protocol for per unit. He still is refusing medications. 02/11/2019: Patient still continues to refuse medications and it appears that he is more malingering and he hasn't engaged in treatment. Awaiting Court, [facility] regarding's deferral and treatment. He remains on 15 minute checks and still refusing all medications because "I was not crazy Dr. I was just afraid" he stated he had a reasonably afraid and that he was trying to get to [place] again to avoid people in [place] and find land in [place]. Although he is rational [place]us[place]ored [place]. 02/12/2019: Patient still continues to refuse medications. He will have a deferral hearing with an assistant attorney general representing [facility] today. If he denies signing a deferral and denies taking medications he will go to the [place], Sunday at 8:30 in the morning. 15 minute checks needs to be continued and usual protocol for the unit. Mental status examination the time of discharge 02/13/2019 11:47 AM The patient presents alert, pleasant, and cooperative. There calmly seated without any agitated behavior. [He] reports that his] mood is good. Affect is congruent and euthymic. [He] deny having any suicidal or homicidal ideation intent or plan. [He] denies any auditory or visual hallucinations. There is no evidence of any delusional thought content. [His] thought process is linear and goal-directed. [His] speech is fluent and nonpressured. [His] memory and concentration is grossly intact for the purposes of this session. ] He is off to custodial next. Patient Condition at Discharge: Stable Plan - Discharge Summary Discharge Rx Participant: No New Discharge Prescriptions: New Paliperidone [Invega] 3 mg PO DAILY 30 Days #30 tab.[email or web address] Discharge Medication List Paliperidone [Invega] 3 mg PO DAILY 30 Days #30 tab.[email or web address] 02/13/19 [Rx] Follow up Appointment(s)/Referral(s): [facility] [Outside] - 02/19/19 11:00 am (with [facility] 02/19/19 at 11 with Brenda) [facility] [NON-STAFF] - 1 Week Patient Instructions/Handouts: Schizoaffective Disorder (DC), Suicide Prevention (DC) Activity/Diet/Wound Care/Special Instructions: Activity and diet as tolerated. Avoid the use of street drugs and alcohol. Take all medications as prescribe. When your are in need of refills on your medications please contact your medical provider and/or outpatient psychiatrist to obtain refills. Please go to scheduled outpatient appointment for aftercare treatment. If symptoms return or become worse, call the crisis line at [phone] and/or go to the nearest emergency room for evaluation. Discharge Disposition: OTHER INSTITUTION NOT DEFINED
[2019-02-13] MEDS ORDERED: LORazepam 2 MG/ML INJ IM STA (14:35)
== END 2019-02-13 15:40 | disposition home or self-care (01) | DRG 885 ==
LOC: EC 15:24 → 3MHU 17:49
PROVIDERS: ADMIT Psychiatry & Neurology Psychiatry; ATTEND Psychiatry & Neurology Psychiatry
DX: F25.9 Schizoaffective disorder, unspecified (principal); Z91.19 Patient's noncompliance with other medical treatment and regimen; Z88.2 Allergy status to sulfonamides; Z76.5 Malingerer [conscious simulation]
CPT/HCPCS: 80053; 82075; 85025; 99285